=== PATIENT | male | born 1960 | race Caucasian/White ===

== ENCOUNTER 2017-12-08 12:58 | Emergency (ER) | payer MEDICARE, MEDICAID ==
[~2017-12-08] VITALS: Ht 175.3 cm; Wt 171.0 kg
[~2017-12-08 12:58] MED LIST: ALBU8.5H8 IH; AMOX-580 PO; ASEN5TAB SL; BUDE10.2 IH; CLON-371 PO; HYDR-3972 PO; IPRA3AMP31 IH; NABU500T2 PO; OMEP-84 PO
[2017-12-08 13:06] VITALS: BP 120/72
[2017-12-08] MEDS ORDERED: ALBU18HF2 INH (13:27)
[2017-12-08] MEDS ORDERED: PRED20TA PO (13:27)
== END 2017-12-08 13:48 | disposition home or self-care (01) ==
LOC: ER 12:58
DX: J44.9 Chronic obstructive pulmonary disease, unspecified (principal); E78.00 Pure hypercholesterolemia, unspecified; I10 Essential (primary) hypertension; G89.29 Other chronic pain; Z76.0 Encounter for issue of repeat prescription; Z85.9 Personal history of malignant neoplasm, unspecified; Z56.0 Unemployment, unspecified; Z91.018 Allergy to other foods; Z88.1 Allergy status to other antibiotic agents; Z79.899 Other long term (current) drug therapy
CPT/HCPCS: 99283

== ENCOUNTER 2019-03-11 20:44 | Emergency (ER) | payer MEDICARE, MEDICAID ==
[~2019-03-11] VITALS: Ht 172.7 cm; Wt 90.9 kg
[~2019-03-11 20:44] MED LIST changes: +ALBU18HF2 INH
--- NOTE | 2019-03-11 21:09 | NUR ---
PT IS EXTREMELY AGGITATED, SHOUTING OUT THREATS AT STAFF. PT WANTS TO BE REFERRED TO [facility].
[2019-03-11] MEDS ORDERED: LORazepam 2 mg/ml vial IM ONE (21:15)
[2019-03-11] MEDS ORDERED: diphenhydrAMINE 50 mg/ml inj IV ONE (21:15)
[2019-03-11] MEDS ORDERED: OLANZapine **IM** 10 mg inj. IM ONE (21:15)
[2019-03-11 21:48] LABS: BASOPHILS # (AUTO) 0.1 X10'3 (0-0.2); BASOPHILS % (AUTO) 0.8 % (0-1); EOSINOPHILS # (AUTO) 0.1 X10'3 (0-0.9); EOSINOPHILS % (AUTO) 0.8 % (0-6); HEMATOCRIT 46.4 % (42.0-52.0); HEMOGLOBIN 16.1 g/dl (14.0-17.9); LYMPHOCYTES # (AUTO) 3.3 X10'3 (1.1-4.8); LYMPHOCYTES % (AUTO) 29.9 % (21-51); MEAN CORPUSCULAR HEMOGLOBIN 33.4 PG (27.0-31.0); MEAN CORPUSCULAR HGB CONC 34.6 g/dL (33.0-36.5); MEAN CORPUSCULAR VOLUME 96.6 FL (78-98); MEAN PLATELET VOLUME 8.6 FL (7.4-10.4); MONOCYTES # (AUTO) 0.9 X10'3 (0-0.9); MONOCYTES % (AUTO) 7.8 % (2-12); NEUTROPHILS # (AUTO) 6.7 X10'3 (1.8-7.7); NEUTROPHILS % (AUTO) 60.7 % (42-75); PLATELET COUNT 220 X10'3 (140-440); RED CELL DISTRIBUTION WIDTH 13.9 % (11.5-14.5)
[2019-03-11 22:03] LABS: ALANINE AMINOTRANSFERASE 40 U/L (12-78); ALBUMIN/GLOBULIN RATIO 1.1 (1.1-1.5); ALKALINE PHOSPHATASE 73 IU/L (46-116); ANION GAP 18 (8-16); ASPARTATE AMINO TRANSFERASE 50 U/L (10-37); BILIRUBIN,TOTAL 0.3 MG/DL (0.1-1.0); BLOOD UREA NITROGEN 10 MG/DL (7-18); BUN/CREATININE RATIO 8.3 (5.4-32.0); CALCIUM 9.3 MG/DL (8.5-10.1); CHLORIDE 101 MMOL/L (99-107); ETHANOL 0.096 GM/DL (0.0-0.010); GLUCOSE 107 MG/DL (70-104); POTASSIUM 3.7 MMOL/L (3.5-5.1); SODIUM 138 MMOL/L (135-145); TOTAL CARBON DIOXIDE 19.5 MMOL/L (24-32); TOTAL PROTEIN 7.7 G/DL (6.4-8.2); eGFR 62 ML/MIN
[2019-03-11 22:44] LABS: URINE AMPHETAMINE SCREEN NEGATIVE (Neg); URINE BARBITUATE SCREEN NEGATIVE (Neg); URINE BENZODIAZEPINES SCREEN NEGATIVE (Neg); URINE CANNABINOID SCREEN POSITIVE (Neg); URINE COCAINE SCREEN NEGATIVE (Neg); URINE METHADONE SCREEN NEGATIVE (Neg); URINE OPIATE SCREEN NEGATIVE (Neg); URINE PHENCYCLIDINE SCREEN NEGATIVE (Neg)
--- NOTE | 2019-03-11 22:49 | NUR ---
PATIENT REFUSED TO HAVE VITAL SIGNS TAKEN. STATED THAT IT WAS"NOT NECESSARY" AND "IT HAS NOTHING TO DO WITH HIS HEART" PATIENT IS UP OUT OF BED PACING ROOM AND RAMBLING AT THIS TIME. SITTER IN ROOM FOR PATIENT'S SAFETY
[2019-03-11 23:52] VITALS: BP 125/96
[2019-03-12] MEDS ORDERED: LORazepam 2 mg/ml vial IM ONE ×2 (00:10→07:25)
--- NOTE | 2019-03-12 00:12 | NUR ---
Pt packet faxed to [facility].
--- NOTE | 2019-03-12 00:15 | NUR ---
Pt escalating and becoming louder in his requests to leave and for his personal property. New orders, security at bedside.
--- NOTE | 2019-03-12 06:41 | NUR ---
pt is calm and quiet lying in bed.
--- NOTE | 2019-03-12 07:00 | NUR ---
pt sitting up in bed. slightly agitated that he is here. wants to leave.
[2019-03-12] MEDS ORDERED: haloperidol lactate 5mg/ml inj IM ONE (07:25)
[2019-03-12] MEDS ORDERED: diphenhydrAMINE 50 mg/ml inj IM ONE (07:25)
--- NOTE | 2019-03-12 08:27 | NUR ---
pt sitting up in bed eating breakfast. calm at this time.
--- NOTE | 2019-03-12 09:45 | NUR ---
pt pacing and walking around the unit. States he has back issues and needs to move around. Pt calm and cooperative at this time.
--- NOTE | 2019-03-12 10:35 | NUR ---
pt calm and quiet in bed.
--- NOTE | 2019-03-12 10:41 | NUR ---
discharge instructions given to pt. Pt verbalized understanding. pt to be discharged home.
== END 2019-03-12 11:01 | disposition home or self-care (01) ==
LOC: ER 20:44
DX: F29 Unspecified psychosis not due to a substance or known physiological condition (principal); E78.00 Pure hypercholesterolemia, unspecified; I10 Essential (primary) hypertension; J44.9 Chronic obstructive pulmonary disease, unspecified; G89.29 Other chronic pain; F31.9 Bipolar disorder, unspecified; F41.9 Anxiety disorder, unspecified; Z91.018 Allergy to other foods; Z79.899 Other long term (current) drug therapy; Z88.1 Allergy status to other antibiotic agents; Z56.0 Unemployment, unspecified
CPT/HCPCS: 36415; 80053; 80305; 80320; 85025; 96372; 96374; 99285; J1200; J2060; J3490